=== PATIENT | male | born 1965 | race Two or more races ===

== ENCOUNTER 2019-12-16 12:33 | Emergency (ER) | payer MEDICAID, OTHER ==
[~2019-12-16] VITALS: Ht 190.5 cm; Wt 68.0 kg
[2019-12-16 14:00] VITALS: BP 107/78
== END 2019-12-16 14:37 | disposition home or self-care (01) ==
LOC: ER 12:33
DX: R19.7 Diarrhea, unspecified (principal); R50.9 Fever, unspecified; R06.02 Shortness of breath; Z20.828 Contact with and (suspected) exposure to other viral communicable diseases
CPT/HCPCS: 71045; 87635